=== PATIENT | female | born 1970 | race Caucasian/White ===

== ENCOUNTER 2019-01-27 17:04 | Emergency (ER) | payer OTHER ==
[2019-01-27 17:12] VITALS: BP 164/83; PULSE 87; TEMP 98.8; BMI 32.8
[2019-01-27] MEDS ORDERED: SODIUM CHLORIDE FOR INHALATION 3 ML VIAL.NEB IH ONE (17:47)
--- NOTE | 2019-01-27 18:49 | PDOC ---
History of Present Illness - General Chief Complaint: Respiratory Stated Complaint: SOB Time Seen by Provider: 01/27/19 17:14 History Source: Patient Exam Limitations: No Limitations Past History - Past Medical History Allergies/Adverse Reactions: Allergies Allergy/AdvReac Type Severity Reaction Status Date / Time No Known Allergies Allergy Verified 01/27/19 17:12 Home Medications: Ambulatory Orders Benzonatate [Tessalon Pearls -] 200 mg PO TID #42 cap 01/27/19 COPD: No - Suicide/Smoking/Psychosocial Hx Smoking History: Never smoked *Physical Exam - Vital Signs Last Vital Signs Temp Pulse Resp BP Pulse Ox 98.8 F 87 18 164/83 98 01/27/19 17:01/27/19 17:09 01/27/19 17:01/27/19 17:01/27/19 17:09 - Physical Exam General Appearance: No: Apparent Distress HEENT: positive: Normal Voice, TMs Normal, Pharyngeal Erythema. negative: Muffled/Hoarse voice, Tonsillar Exudate, Tonsillar Erythema, Nasal Congestion, Rhinorrhea, Sinus Tenderness Respiratory/Chest: positive: Lungs Clear, Normal Breath Sounds. negative: Respiratory Distress Cardiovascular: positive: Regular Rhythm, Regular Rate, S1, S2. negative: Murmur Gastrointestinal/Abdominal: positive: Normal Bowel Sounds, Soft. negative: Tender, Distended, Guarding, Rebound Extremity: negative: Pedal Edema, Swelling, Calf Tenderness Neurologic: positive: Alert, Normal Mood/Affect ED Treatment Course - RADIOLOGY Radiology Studies Ordered: Category Date Time Status CHEST PA & LAT [RAD] Stat Radiology 01/27/19 17:48 Taken - Medications Given in the ED: ED Medications Discontinued Medications Generic Name Dose Route Start Last Admin Trade Name Freq PRN Reason Stop Dose Admin Sodium Chloride 3 ml 01/27/19 17:47 01/27/19 18:14 Normal Saline For Inhalation - IH 01/27/19 17:48 3 ml ONCE ONE Administration Medical Decision Making - Medical Decision Making 46 y/o F presents with dry cough from last week along with fever (Tmax 100.4), body aches, throat pain and R ear pain. Saw doctor 2 days ago and told her tonsils were swollen and was started on steroids. However, steroids are not helping. Also now, with slight chest tightness due to coughing. Denies sob, abd pain, n/v, leg swelling, calf pain. Did not take any antipyretics today. Denies smoking or drug use. CXR done and negative Lungs clear Likely viral URI Given saline neb 01/27/19 18:46 Patient feels slightly better after meds stable for dc 01/27/19 19:10 *DC/Admit/Observation/Transfer Diagnosis at time of Disposition: Viral URI - Discharge Dispostion Disposition: HOME Condition at time of disposition: Stable Decision to Admit order: No - Prescriptions Prescriptions: Benzonatate [Tessalon Pearls -] 200 mg PO TID #42 cap - Referrals - Patient Instructions Printed Discharge Instructions: DI for Viral Upper Respiratory Infection -- Adult Additional Instructions: Thank you for choosing [facility]. It was a pleasure taking care of you. You can use Tessalon Perles to help with cough recommend salt water gargles if throat feels irritated Your chest xray was normal follow-up with your doctor in 2 days Return to the Emergency Department if your symptoms worsen or persist or have other concerning symptoms. - Post Discharge Activity
== END 2019-01-27 19:19 | disposition home or self-care (01) ==
LOC: JERFT 17:04 → EDBD 17:04 → JERFT 19:19
PROC: 3E0F7GC Introduction of Other Therapeutic Substance into Respiratory Tract, Via Natural or Artificial Opening (ICD-10-PCS; principal; 2019-01-27)
DX: J06.9 Acute upper respiratory infection, unspecified (principal); B97.89 Other viral agents as the cause of diseases classified elsewhere
CPT/HCPCS: 71046-TC-FY; 94640; 99281-25